=== PATIENT | male | born 1985 | race Caucasian/White ===

== ENCOUNTER 2024-03-31 08:32 | Emergency (ER) | payer OTHER ==
[~2024-03-31] VITALS: Ht 185.4 cm; Wt 59.6 kg
[2024-03-31] MEDS ORDERED: IBUP-1022 PO (08:44)
[2024-03-31] MEDS: ACETAMINOPHEN *IV* 1,000 MG in IV 1 EA IV ONE (09:36)
[2024-03-31] MEDS: ONDANSETRON 4MG 2ML VIAL IV ONE (09:37)
[2024-03-31] MEDS ORDERED: ISOVUE-370 76% 100ML VIAL As Ordered ONE (09:43)
[2024-03-31 09:48] LABS: BASO % 0.4 % (0.0-1.0); EOS # 0.2 10^3/uL (0.0-0.5); EOS % 2.7 % (0.0-3.0); HEMATOCRIT 43.4 % (42.0-52.0); HEMOGLOBIN 14.7 g/dl (13.5-17.5); LYMPH # 1.7 10^3/uL (1.5-5.0); LYMPH % 21.4 % (24.0-44.0); MEAN CORPUSCULAR HEMOGLOBIN 30.5 pg (27.0-33.0); MEAN CORPUSCULAR HGB CONC 33.9 g/dl (32.0-36.5); MONO # 0.6 10^3/uL (0.0-0.8); NEUTROPHILS # 5.2 10^3/uL (1.5-8.5); PLATELET COUNT, AUTOMATED 187 10^3/uL (150-450); RED BLOOD COUNT 4.82 10^6/uL (4.30-6.10); WHITE BLOOD COUNT 7.8 10^3/uL (4.0-10.0)
[2024-03-31 10:11] LABS: LIPASE 33 U/L (12-53)
[2024-03-31 10:13] LABS: ALBUMIN 3.6 G/DL (3.2-5.2); ALKALINE PHOSPHATASE 79 U/L (40-129); ALT/SGPT < 9 U/L (7.0-40); AST/SGOT 14 U/L (<34); BILIRUBIN,DIRECT 0.1 MG/DL (<0.4); BILIRUBIN,TOTAL 0.4 MG/DL (0.3-1.2)
[2024-03-31] MEDS ORDERED: KETO10TAB PO (11:31)
[2024-03-31] MEDS ORDERED: FLOM0.4C39 PO (11:31)
[2024-03-31 11:32] VITALS: BP 111/72; TEMP 98.3; O2SAT 100
== END 2024-03-31 11:35 | disposition home or self-care (01) ==
LOC: M ED 08:32 → EDBD 08:32 → M ED 11:35
DX: N20.1 Calculus of ureter (principal); K59.00 Constipation, unspecified; R51.9 Headache, unspecified; F17.200 Nicotine dependence, unspecified, uncomplicated; Z79.1 Long term (current) use of non-steroidal anti-inflammatories (NSAID); Z79.2 Long term (current) use of antibiotics
CPT/HCPCS: 71045; 74177; 80047; 80076; 81000; 81015; 83690; 85025; 87086; 96365; 96375; 99284; J0131; J2405; Q9967